=== PATIENT | female | born 1955 | race Caucasian/White ===

== ENCOUNTER 2020-12-14 18:35 | Emergency (ER) | payer OTHER ==
[~2020-12-14] VITALS: Ht 175.3 cm; Wt 62.0 kg
--- NOTE | 2020-12-14 19:16 | NUR ---
pt called for tunde, no answer
[2020-12-14 19:17] VITALS: BP_DIAS 90
[2020-12-14 22:12] VITALS: BP_SYST 139
--- NOTE | 2020-12-14 22:13 | NUR ---
Patient given discharge instructions and they have confirmed that they understand the instructions. Patient d/c via wheelchair, able to ambualte with crutches provided. NAD, all questions answered appropriately, denies additional needs at this time. No personal belongings left in room after discharge.
== END 2020-12-14 22:14 | disposition home or self-care (01) ==
LOC: ED 21:46
DX: S93.601A Unspecified sprain of right foot, initial encounter (principal); X58.XXXA Exposure to other specified factors, initial encounter; Y93.89 Activity, other specified; Y92.89 Other specified places as the place of occurrence of the external cause; Y99.8 Other external cause status
CPT/HCPCS: 29515; 99283